=== PATIENT | female | born 1995 | race Caucasian/White ===

== ENCOUNTER 2023-08-05 18:17 | Emergency (ER) | payer OTHER, SELFPAY ==
[2023-08-05 18:23] VITALS: BP 139/90; PULSE 88; RESP 18; TEMP 36.6; O2SAT 100
[2023-08-05 19:14] LABS: Influenza A QL RT-PCR Negative (Negative); Influenza B QL RT-PCR Negative (Negative); RSV RNA, RT-PCR Negative (Negative); SARS-CoV-2 RNA PCR Negative (Negative)
--- NOTE | 2023-08-05 20:22 | PC.NURSE ---
pt to desk, stating she is leaving due to wait time. encouraged to come back if symptoms get worse, states she will go to a different facility
== END 2023-08-05 21:19 | disposition left against medical advice (07) ==
LOC: ANHED 20:25
PROVIDERS: Student in an Organized Health Care Education/Training Program; PCP Family Medicine
DX: R05.9 Cough, unspecified (principal)
CPT/HCPCS: 87637; 99199

== ENCOUNTER 2023-08-21 14:42 | Outpatient (CLI) | payer OTHER, SELFPAY ==
[2023-08-21 15:59] LABS: HIV 1/2 Ab P24 Ag Result Negative (Negative)
[2023-08-21 16:41] LABS: Hepatitis B Surface Antigen Negative (Negative)
[2023-08-21 16:58] LABS: Hepatitis C Virus Antibody Negative (Negative)
[2023-08-22 17:04] LABS: Rapid Plasma Reagin Non-Reactive (NonReactive)
== END 2023-08-21 14:43 | disposition home or self-care (01) ==
LOC: ANHLAB 14:44
PROVIDERS: Visit Provider Nurse Practitioner Family
DX: Z11.3 Encounter for screening for infections with a predominantly sexual mode of transmission (principal)
CPT/HCPCS: 36415; 86592; 86703; 86803; 87340; G0432

== ENCOUNTER 2024-01-06 18:06 | Emergency (ER) | payer OTHER, SELFPAY ==
[2024-01-06 18:12] VITALS: BP 133/87; PULSE 78; RESP 20; TEMP 36.2; O2SAT 100
--- NOTE | 2024-01-06 19:10 | PC.NURSE ---
When asked if patient has been to the dentist for tooth concerns the patient replied No. I travel around a lot so I don't have a PCP .
--- NOTE | 2024-01-06 19:17 | ED.DENTAL ---
HPI - Dental/Oral General Chief complaint: Dental/Oral Stated complaint: toothache Time Seen by Provider: 01/06/24 19:08 Source: patient Mode of arrival: ambulatory Limitations: no limitations History of Present Illness HPI Narrative: this is a 28-year-old female who presents to the ED with chief complaint of dental pain ongoing for the past several days. She has known cavities to both sides of her mouth but has not seen a dentist in quite some time. Reports that this pain will come and go intermittently every couple years. Worse on the left side today. Radiates up into the left ear. Denies fevers, chills, nausea, vomiting, swelling or trouble swallowing. Related Data Allergies Allergy/AdvReac Type Severity Reaction Status Date / Time No Known Allergies Allergy Verified 01/06/24 18:14 Review of Systems Review of Systems: All systems as dictated in [facility] Past Medical History Medical History (Updated 01/07/24 @ 00:00 by Hemanth [place]) Anxiety Surgical History Surgical History (Updated 08/21/23 @ 14:14 by Lia Giraldo CMA) H/O removal of cyst Hx of umbilical hernia repair Family History Family History (Updated 08/21/23 @ 14:15 by Lia Giraldo CMA) Other Alcoholism Asthma Cerebrovascular accident Depression Diabetes mellitus Heart disease History of cancer Hypertension Social History Social History (Updated 08/21/23 @ 14:16 by Lia Giraldo CMA) Smoking status: Current every day smoker Tobacco type: cigarettes Alcohol intake: current Substance use: current Substance use type: marijuana Do You Feel Safe in your Home?: Yes Lack of Transportation: No Lack of Food: Never True Current Housing: I Have Housing Concerned About Future Housing: No Difficulty Paying Gas/Electric Bills: No Difficulty Paying for Meds: No Currently Unemployed: No Education: High School Diploma/GED Difficulty w/ Childcare or Family Care: No Exam Narrative: GENERAL: Well-appearing, well-nourished, and in no acute distress. HEAD: Normocephalic, atraumatic. EYES: PERRLA and EOMI. ENT: Dental caries noted to bilateral upper molars. Worse on left. No discrete or identifiable abscess. No trismus or drooling. Nares clear, no rhinorrhea or epistaxis. Mucous membranes moist. Oropharynx without tonsillar hypertrophy exudate or other lesions. NECK: Supple. No adenopathy or masses. CHEST: No respiratory distress. Clear to auscultation. No wheezes rales or rhonchi HEART: Regular rate and rhythm. No murmur heard. Normal peripheral pulses. ABDOMEN: Soft, nontender, nondistended, normal active bowel sounds. MSK: Normal range of motion. No edema. SKIN: Warm, dry, no rash. NEURO: Alert and oriented x4. No focal deficits. PSYCH: Normal mood and affect. Course Vital Signs Vital signs: Vital Signs Temperature 97.2 F L 01/06/24 18:12 Pulse Rate 78 01/06/24 18:12 Respiratory Rate 20 01/06/24 18:12 Blood Pressure 133/87 01/06/24 18:12 Pulse Oximetry 100 01/06/24 18:12 Oxygen Delivery Room Air 01/06/24 18:12 Temperature 97.2 F L 01/06/24 18:12 Pulse Rate 78 01/06/24 18:12 Respiratory Rate 20 01/06/24 18:12 Blood Pressure 133/87 01/06/24 18:12 Pulse Oximetry 100 01/06/24 18:12 Oxygen Delivery Room Air 01/06/24 18:12 MDM - Dental/Oral MDM Narrative Medical decision making narrative: This is a 28-year-old female who presents to the ED with chief complaint of dental pain to the left upper side has been getting worse over the past week. Vitals are normal. Exam is remarkable for caries. Patient will be given Toradol IM here. Rx for Augmentin given. She knows she needs to follow-up with dentist. Pt will be discharged in stable condition. Return precautions given and supportive measures discussed. Pt is understanding and agreeable with plan for discharge and follow-up with PCP. Discharge Mansi
[2024-01-06] MEDS: AMOXICILLIN/CLAVULANATE K 875-125 MG TAB 1 TABLET PO (19:27)
[2024-01-06] MEDS: KETOROLAC 30 MG/ML VIAL (*BKC) IM (19:28)
== END 2024-01-06 19:41 | disposition home or self-care (01) ==
LOC: ANHED 19:34
PROVIDERS: Emergency Provider Physician Assistant
DX: K02.9 Dental caries, unspecified (principal); F17.210 Nicotine dependence, cigarettes, uncomplicated
CPT/HCPCS: 96372; 99283; A9270; J1885

== ENCOUNTER 2024-03-21 15:07 | Emergency (ER) | payer OTHER, SELFPAY ==
--- NOTE | 2024-03-21 15:35 | ED.GENADULT ---
[facility] - General Adult General Chief complaint: Dental/Oral Stated complaint: dental/jaw pain Time Seen by Provider: 03/21/24 15:35 Source: patient Mode of arrival: ambulatory Limitations: no limitations History of Present Illness HPI narrative: This is a 28-year-old female who presents to the ED with chief complaint of dental pain the past several days. She had similar dental pain on a left-sided few months ago and was treated by myself, however today is only on the right. States that the left-sided pain got much better on Augmentin Toradol last time. She would like to try the same today. States the pain radiates somewhat into the right side of the face and right ear. Denies facial swelling, fevers, chills, nausea, vomiting, trismus, drooling. Related Data Allergies Allergy/AdvReac Type Severity Reaction Status Date / Time No Known Allergies Allergy Verified 01/06/24 18:14 Review of Systems Review of Systems: All systems as dictated in [facility] Past Medical History Medical History (Updated 03/21/24 @ 15:38 by Ian Galarza PA-C) Anxiety Surgical History Surgical History (Updated 08/21/23 @ 14:14 by Lia Giraldo CMA) H/O removal of cyst Hx of umbilical hernia repair Family History Family History (Updated 08/21/23 @ 14:15 by Lia Giraldo CMA) Other Alcoholism Asthma Cerebrovascular accident Depression Diabetes mellitus Heart disease History of cancer Hypertension Social History Social History (Updated 08/21/23 @ 14:16 by Lia Giraldo CMA) Smoking status: Current every day smoker Tobacco type: cigarettes Alcohol intake: current Substance use: current Substance use type: marijuana Do You Feel Safe in your Home?: Yes Lack of Transportation: No Lack of Food: Never True Current Housing: I Have Housing Concerned About Future Housing: No Difficulty Paying Gas/Electric Bills: No Difficulty Paying for Meds: No Currently Unemployed: No Education: High School Diploma/GED Difficulty w/ Childcare or Family Care: No Exam Narrative: GENERAL: Well-appearing, well-nourished, and in no acute distress. HEAD: Normocephalic, atraumatic. EYES: PERRLA and EOMI. ENT: Dental caries noted bilaterally. No focal fluid collection or abscess appreciated. No trismus or drooling. Floor of the mouth intact Nares clear, no rhinorrhea or epistaxis. Mucous membranes moist. Oropharynx without tonsillar hypertrophy exudate or other lesions. NECK: Supple. No adenopathy or masses. CHEST: No respiratory distress. Clear to auscultation. No wheezes rales or rhonchi HEART: Regular rate and rhythm. No murmur heard. Normal peripheral pulses. ABDOMEN: Soft, nontender, nondistended, normal active bowel sounds. MSK: Normal range of motion. No edema. SKIN: Warm, dry, no rash. NEURO: Alert and oriented x4. No focal deficits. PSYCH: Normal mood and affect. Medical Decision Making MDM Narrative Medical decision making narrative: This is a 28-year-old female presenting to the ED for right-sided dental pain. Vitals are normal. Exam is benign overall. Dental caries are noted but otherwise dentition appears intact. No abscess noted. No red flag signs on physical exam for deep space infection. Patient will be given shot of Toradol and Rx for short course of home Toradol. Augmentin prescription written as well. Dental referral sheet given Pt will be discharged in stable condition. Return precautions given and supportive measures discussed. Pt is understanding and agreeable with plan for discharge and follow-up with PCP. Discharge Plan Discharge Clinical Impression: Dental caries Patient Disposition: Home, Self-Care Condition: Stable Instructions: Antibiotic Form Additional Instructions: Please take antibiotics and Toradol as prescribed. Do not take other NSAIDs with Toradol. Follow-up closely with dentist. If you have any new or worsening
[2024-03-21 15:40] VITALS: BP 132/71; PULSE 77; RESP 18; TEMP 36.9; O2SAT 100
[2024-03-21] MEDS: KETOROLAC 30 MG/ML VIAL (*BKC) IM (15:45)
== END 2024-03-21 16:00 | disposition home or self-care (01) ==
LOC: ANHED 15:42
PROVIDERS: Emergency Provider Physician Assistant
DX: K02.9 Dental caries, unspecified (principal); F41.9 Anxiety disorder, unspecified; F17.210 Nicotine dependence, cigarettes, uncomplicated
CPT/HCPCS: 96372; 99283; J1885

== ENCOUNTER 2024-12-20 19:29 | Emergency (ER) | payer OTHER, SELFPAY ==
--- OUTSIDE RECORDS SUMMARY | 2024-12-20 19:33 | XMS_ITS | Clinical Summary ---
Author Organization [facility] Address [address] [place] [address] Care Team Providers Care Computer Teacher Name Role Phone Ruthann Quiroga Primary Care Provider + Allergies No known active allergies Medications lurasidone (LATUDA) 40 mg tablet Take 1 tablet (40 mg total) by mouth servicing manager before breakfast 4 Active ondansetron ODT (ZOFRAN-ODT) 4 mg disintegrating tabletIndications: Acute left ankle pain DISSOLVE 1 TABLET(4 MG) ON THE TONGUE EVERY 8 HOURS NEEDED FOR NAUSEA OR VOMITING 30 tablet 5 Active meloxicam (MOBIC) 7.5 mg tabletIndications: Acute left ankle pain TAKE 1 TABLET(7.5 MG) BY MOUTH DAILY 30 tablet 11 5 Active meclizine (ANTIVERT) 25 mg tablet Take 1 tablet (25 mg total) by mouth 3 (three) times a day as needed for dizziness 30 tablet 5 Active Active Problems Problem Noted Date Diagnosed Date Bipolar II disorder 05/07/2024 Assessment & Plan (05/07/2024 2:03 PM CDT): Chronic, not well controlled. Patient just recently started seeing a psychiatrist and was started on Latuda. She denies suicidal thoughts. Still feels anxious. She will follow up with psychiatrist. Vapes nicotine containing substance 05/07/2024 Assessment & Plan (05/07/2024 2:03 PM CDT): Patient recently quit smoking. Congratulated her on this. She is currently vaping, we did discuss cutting back and eventual cessation of her vape use as well. 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 Chronic back pain. She will start physical therapy and get updated x-rays Chronic bilateral low back pain without sciatica 05/07/2024 Assessment & Plan (05/07/2024 2:04 PM CDT): Chronic, stable overall. X-rays ordered. Start physical therapy Chronic bilateral thoracic back pain 05/07/2024 Assessment & Plan (05/07/2024 2:04 PM CDT): Chronic, stable overall. X-rays ordered. Start physical therapy Chronic neck pain 05/07/2024 Assessment & Plan (05/07/2024 2:04 PM CDT): Chronic, stable overall. X-rays ordered. Start physical therapy Obesity, Class II, BMI 35-39.9 05/07/2024 Assessment & Plan (05/07/2024 2:04 PM CDT): Chronic, labs ordered Immunizations Immunization Administration Dates Next Due DTaP 11/27/2003, 3,11/13/2000,07/20,04/29/1998 HPV, Quadrivalent 10/30/2014,12/24/2010 Hep A, Ped Unspecified 11/27/2003 Hep A, Unspecified 12/24/2010 Hep B / HiB 11/13/2000,04/29/1998 Hep B, Adolescent or Pediatric 1997 HiB 07/20/1998 IPV 11/27/2003,05/01/2003,11/13/2000 Influenza, Quadrivalent, Spl it, Preservative Free, Intramuscular 05/16/2016 Influenza, Trivalent, Cell Culture-based MDCK, Preservative Free, Antibiotic Free, Intramuscular 04/19/2024 Influenza, Unspecified 05/03/2024,2022(Deferred: Patient decision),04/30/2013,07/05/2010 MMR 11/27/2003,05/01/2003,11/13/2000 Meningococcal ACWY, Unspecified 02/16/2009 Meningococcal Conjugate (Menveo) 10/30/2014 OPV 07/20/1998,04/29/1998 Td, adsorbed 02/16/2009 Tdap 05/01/2016,02/16/2009 Varicella 02/16/2009,10/31/2000 Surgical History Surgery Date Site/Laterality Comments PILONIDAL CYSTECTOMY 07/17/2021 - 07/16/2022 back UMBILICAL HERNIA REPAIR 07/17/2021 - 07/16/2022 CYST REMOVAL 07/17/2021 - 07/16/2022 umbilical Medical History Medical History Date Comments Anxiety 2015 Depression 2016 Bipolar 2 disorder (HCC) Scheuermann disease Family History Medical History Relation Name Comments Down syndrome Brother 1 Down syndrome Brother 2 Diabetes Maternal Grandmother No Known Problems Mother Seizures Sister 3 Relation Name Status Comments Brother 1 Alive Brother 2 Alive Father Maternal Grandfather Alive Maternal Grandmother Alive Mother Alive Paternal Grandfather Paternal Grandmother Sister 1 Alive Sister 2 Alive Sister 3 Alive Sister 4 Alive Social History Tobacco Use Types Packs/Day Years Used Date Smoking Tobacco: Former Cigarettes 1.5 4.8 0 07/17/2019 - 04/23/2024 Vaping Started: 04/23 Smokeless Tobacco: Never Tobacco Cessation:Counseling Given: Not Answered AUDIT-C Answer Date Recorded Q1: How often do you have a drink containing alc ohol? 2-4 times a month 05/07/2024 Q2: How many drinks containi ng alcohol do you have on a typical day when you are drinking? 1 or 2 05/07/2024 Q3: How often do you have si x or more drinks on one occasion? Less than monthly 05/07/2024 PHQ-2 Answer Date Recorded PHQ-2 Total Score (If total score is 3 or more points, staff should administer the PHQ-9) 3 05/07/2024 PHQ-9 Answer Date Recorded PHQ-9 Total Score 22 05/07/2024 Comments No Sex and Gender Information Value Date Recorded Sex Assigned at Not on file Legal Sex Female 6:52 PM INSTRUCTIONAL TECHNOLOGY DIRECTOR Gender Identity Female 09/13/2023 1:46 AM INSTRUCTIONAL TECHNOLOGY DIRECTOR Sexual Orientation Straight 09/13/2023 1: 46 AM INSTRUCTIONAL TECHNOLOGY DIRECTOR Obstetrics History Last Filed Vital Signs Vital Sign Reading Time Taken Comments Blood Pressure 110/78 05/07/2024 1:38 PM CDT Pulse 67 05/07/2024 1:38 PM CDT Temperature 36.5 C (97.7 F) 05/07/2024 1:38 PM CDT Respiratory Rate 16 05/07/2024 1:38 PM CDT Oxygen Saturation 97% 05/07/2024 1:38 PM CDT Inhaled Oxygen Concentration - - Weight 110.2 kg (243 lb) 05/07/2024 1:38 PM CDT Height 170.2 cm (5' 7) 05/07/2024 1:38 PM CDT Body Mass Index 38.06 05/07/2024 1:38 PM CDT Plan of Treatment Health Maintenance Due Date Last Done Comments Cervical Cancer Screening 1995 Hepatitis C Screening 1995 Regular Well Visit/Exam 18-64 12/07/2015 Depression Screening 05/07/2025 05/07/2024, 05/07/20 24 DTaP/Tdap/Td Vaccine (9 - Td or Tdap) 05/01/2026 05/01/2016, 02/16/2009, 02/16/2009, Additional history exists Hepatitis B Screening Completed 11/13/2000 , 04/29/1998, 1997 Varicella Vaccines Completed 02/16/2009, 10/31/2000 HPV Vaccines Completed 10/30/2014, 12/24/2010 Influenza Vaccine Completed 05/03/2024, , 05/16/2016, Additional history exists Pneumococcal vaccine <65 Aged Out No longer eligible based on patient's age to complete this topic Insurance [facility] [place] [id number] [facility] Care Teams Computer Teacher Relationship Specialty Start Date End Date Ruthann Quiroga PA [address] [facility] [address] [place] [address] PCP - General Family Medicine 05/07/24
--- OUTSIDE RECORDS SUMMARY | 2024-12-20 19:33 | XMS_ITS | Patient Health Record ---
Author Organization [facility] Address [address] [place] [address] Care Team Providers Care Veterans Contact Representative Name Role Phone Delia Patton Primary Care Provider Pablo Lennon [phone] Reason For Referral No Information Encounters Encounter Location Date Provider Diagnosis [address] [place] [address] 04/25/2024 Pablo Lennon Plan Of Treatment No Information Insurance Providers Payer Name Payer Address Payer Phone Subscriber Number Group Number Insured Name Patient Relationship to Insured Coverage Start Date Coverage End Date [facility] Attn Claims Department [address] [place] [id number] Karina Perez Self - patient is the insured 4
--- OUTSIDE RECORDS SUMMARY | 2024-12-20 19:33 | XMS_ITS | Referral Summary ---
Author Organization [facility] Address [address] [place] [address] Care Team Providers Care Peoplesoft Functional Analyst Name Role Phone Ruthann Quiroga Primary Care Provider + Allergies No known active allergies Medications lurasidone (LATUDA) 40 mg tablet Take 1 tablet (40 mg total) by mouth supervisor metal cans before breakfast 4 Active ondansetron ODT (ZOFRAN-ODT) [...] Td, adsorbed 02/16/2009 Tdap 05/01/2016,02/16/2009 Varicella 02/16/2009,10/31/2000 Social History Tobacco Use Types Packs/Day Years [...] on file Legal Sex Female 6:52 PM COIL STRAPPER Gender Identity Female 09/13/2023 1:46 AM COIL STRAPPER Sexual Orientation Straight 09/13/2023 1: 46 AM COIL STRAPPER Last Filed Vital Signs Vital Sign Reading [...] 05/07/2024 1:38 PM CDT Plan of Treatment Not on file Insurance [facility] Care Teams Peoplesoft Functional Analyst Relationship Specialty Start Date End Date Ruthann Quiroga PA [address] [facility] [address] [place] [address] PCP - General Family Medicine 05/07/24
--- OUTSIDE RECORDS SUMMARY | 2024-12-20 19:33 | XMS_ITS ---
Author Organization [facility] Address [address] [place] [address] Care Team Providers Care Guard Dance Hall Name Role Phone Delia Patton Primary Care Provider Pablo Lennon [phone] REASON FOR VISIT transfer from [facility] last seen [phone] Encounters Encounter Location Date Provider Diagnosis [address] [address] 04/30/2024 Pablo Lennon Plan Of Treatment No Information Progress Notes * MYRNADevin ManuelB:1995 (29 yo F)Acc No.[id number]:04/30/2024 UNLOCKED PROGRESS NOTE Progress Notes Patient: Karina BHATIA Provider: Agustina Lennon :1995 A ge:28 Y S ex:Female Date:04/30/2024 Address:[address] [place], [place] [id number] Pcp:Delia Patton Subjective: * Chief Complaints: * 1 . transfer from [facility] last seen [phone]. * Medical History: Objective: * Vitals: Assessment: Plan: * Treatment: * * Electronic signature of Ishan Lennon , [id number] on 12/20/2024 at 07:32 PM CDT Sign off status: Pending * Provider: Agustina Lennon Date: 1 Generated for Iman underwood/Jarrell/eTransmitting on: 0 12/20/2024 07:32 PM CDT
[2024-12-20 19:41] VITALS: BP 133/76; PULSE 78; RESP 18; TEMP 36.6; O2SAT 100
[2024-12-20] MEDS: IBUPROFEN 400 MG TABLET 800 MG PO (22:08)
[2024-12-20] MEDS: HYDROcodone/acetaminophen (*CRX) 5-325 MG TABLET 1 TAB PO (22:09)
[2024-12-20] MEDS: LIDOCAINE, EPINEPHRINE, TETRACAINE VISCOUS SOLN 3 ML TOPICAL (22:51)
--- NOTE | 2024-12-20 22:51 | ED.WOUNDLAC ---
HPI - Wound/Laceration General Chief Complaint: Wound/Laceration Stated Complaint: cyst removed on back 3 years ago, scar red/raised Time Seen by Provider: 12/20/24 21:28 History of Present Illness HPI narrative: 29-year-old female presents to the emergency department for a pilonidal cyst for the past 4 days. Patient states she had a pilonidal cyst 3 years ago which was removed by a surgeon in [place]. She has not had any issues since until the cyst reappeared 4 days ago. She reports warmth, erythema, pain and bulging to the region. She denies fevers, nausea or vomiting. Denies spontaneous drainage. Denies possibility of . Related Data Allergies Allergy/AdvReac Type Severity Reaction Status Date / Time No Known Allergies Allergy Verified 12/20/24 19:41 Review of Systems Review of Systems: All systems reviewed & are unremarkable except as noted in HPI and below PMFSH Past Medical History Medical History Anxiety Surgical History Surgical History Hx of umbilical hernia repair H/O removal of cyst Family History Family History Other Alcoholism Asthma Cerebrovascular accident Depression Diabetes mellitus Heart disease History of cancer Hypertension Social History Social History Smoking status: Current every day smoker Tobacco type: cigarettes Alcohol intake: current Substance use: current Substance use type: marijuana Do You Feel Safe in your Home?: Yes Lack of Transportation: No Lack of Food: Never True Current Housing: I Have Housing Concerned About Future Housing: No Difficulty Paying Gas/Electric Bills: No Difficulty Paying for Meds: No Currently Unemployed: No Education: High School Diploma/GED Difficulty w/ Childcare or Family Care: No Exam Narrative: GENERAL: Well-appearing, well-nourished, and in no acute distress. HEAD: Normocephalic, atraumatic. EYES: EOMI. ENT: Nares clear, no rhinorrhea or epistaxis. Mucous membranes moist. NECK: Supple. CHEST: Clear to auscultation. No respiratory distress. HEART: Regular rate and rhythm. No murmur heard. Normal peripheral pulses. ABDOMEN: Soft, nontender, nondistended, normal active bowel sounds. EXTREMITIES: Normal range of motion. No edema. SKIN: Large pilonidal abscess with fluctuance, overlying and surrounding erythema, warmth and tenderness. No spontaneous drainage NEURO: No focal deficits. Alert and oriented x3 Course Vital Signs Vital signs: Vital Signs Temperature 97.8 F 12/20/24 19:41 Pulse Rate 78 12/20/24 19:41 Respiratory Rate 18 12/20/24 19:41 Blood Pressure 133/76 12/20/24 19:41 Pulse Oximetry 100 12/20/24 19:41 Temperature 97.8 F 12/20/24 19:41 Pulse Rate 78 12/20/24 19:41 Respiratory Rate 18 12/20/24 19:41 Blood Pressure 133/76 12/20/24 19:41 Pulse Oximetry 100 12/20/24 19:41 Procedures Abscess I/D other: Date of Incision: 12/20/24 Time of Incision: 23:45 Local Anesthetic: lidocaine 1% and with epi Amount of anesthesia used (mL): 6 Technique: incised with #11 blade Amount of fluid expressed (mL): 15 Packing used?: plain I&D Results: Pus and Blood Complications: pain MDM - Wound/Laceration MDM Narrative Medical decision making narrative: 29-year-old female presents emergency department with a pilonidal abscess for the past 4 days. Triage vitals are stable. No systemic signs of infection. Exam is notable for a large pilonidal abscess with fluctuance, overlying cellulitic changes. Topical let applied and anesthesia successful with lidocaine with epi. Abscess I&D with large amount of purulence drained and packing placed. Patient was started on Bactrim and 1st dose was provided in the ED. She was given follow-up for General surgery and return precautions. She is agreeable with the plan verbalized understanding. Discharged in stable condition. Discharge Plan Discharge Clinical Impression: Pilonidal abscess Patient Disposition: Home Condition: Stable Instructions: Antibiotic Form, Pilonidal Cyst (ED), Abscess Incision and Drainage (DC) Additional Instructions: Please remove her packing in 2 days. Take the antibiotics as directed. Take Tylenol ibuprofen as needed for pain. Follow-up with general surgeon. Return to the emergency department if you develop fever, increasing redness, vomiting, or other concerning symptoms. Patient Language: Polish Prescriptions: New sulfamethoxazole-trimethoprim 800-160 mg tablet 1 tablet PO Q12H Qty: 14 0RF No Action amoxicillin-pot clavulanate 875-125 mg tablet 1 tablet PO Q12H Qty: 14 0RF ketorolac 10 mg tablet 10 mg PO Q8H PRN (Reason: pain) Qty: 15 0RF Rx Instructions: maximum total duration of 5 days from all oral, intranasal, or parenteral formulations amoxicillin-pot clavulanate 875-125 mg tablet 1 tablet PO Q12H Qty: 14 0RF ketorolac 10 mg tablet 10 mg PO Q8H PRN (Reason: pain) Qty: 15 0RF Rx Instructions: maximum total duration of 5 days from all oral, intranasal, or parenteral formulations Follow-up/Referrals: Nevin Winn MD [Physician] - Magui Quiroga RN [Primary Care Provider] -
[2024-12-20] MEDS: SULFAMETHOXAZOLE/TRIMETHOPRIM 800/160 MG DS TABLET 1 TAB PO (23:59)
[2024-12-21] MEDS: ONDANSETRON HCL ODT 4 MG TABLET PO (00:02)
--- NOTE | 2024-12-21 00:05 | PC.NURSE ---
patient verbalized wanting zofran otd due to feeling nauseated from the pain. per reza from edp dr. samuel patient to receive 4mg of zofran otd. this rn used closed loop communication to confirm the medication/ patient/ route/ dose/ time.
== END 2024-12-21 00:08 | disposition home or self-care (01) ==
PROVIDERS: Emergency Provider Physician Assistant
DX: L05.01 Pilonidal cyst with abscess (principal); F17.210 Nicotine dependence, cigarettes, uncomplicated
CPT/HCPCS: 10061; 10080; 99283; A9270